=== PATIENT | female | born 1975 | race Caucasian/White ===

== ENCOUNTER 2023-08-19 13:05 | Emergency (ER) | payer BC ==
[2023-08-19 13:44] LABS: #Basophils 0.1 thou/uL (0.0-0.2); #Eosinphils 0.2 thou/uL (0.0-0.7); #Lymphocytes 1.6 thou/uL (1.20-3.40); #Monocytes 0.6 thou/uL (0.11-0.59); #Neutrophils 5.8 thou/uL (1.40-6.50); %Basophils 1.1 % (0.0-1.0); %Eosinophils 2.1 % (0.0-10.0); %Lymphocytes 19.7 % (21.0-51.0); %Monocytes 6.8 % (0.0-10.0); %Neutrophils 70.3 % (42.0-75.0); Hematocrit 37.5 % (36.0-47.0); Hemoglobin 12.2 g/dL (12.0-16.0); Mean Corpuscular HGB CONC 32.6 g/dL (32.0-36.0); Mean Corpuscular Hemoglobin 30.6 pg (27.0-31.0); Mean Corpuscular Volume 93.8 fl (78.0-98.0); Mean Platelet Volume 7.7 fL (7.4-10.4); Platelet Count 224 10x3/uL (130-400); RBC Distribution Width 11.6 % (11.5-14.5); White Blood Cell (WBC) Count 8.3 10x3/uL (4.8-10.8)
[2023-08-19] MEDS ORDERED: Metoclopramide HCl 10 MG (2 mL) VIAL ONE (13:50)
[2023-08-19] MEDS ORDERED: diphenhydrAMINE 50 MG/ML VIAL ONE (13:50)
[2023-08-19 13:54] LABS: Prothrombin Time 12.9 sec (12.0-14.7)
[2023-08-19 13:59] LABS: ALT (SGPT) 20 U/L (8-55); AST (SGOT) 18 U/L (5-34); Albumin 3.7 g/dL (3.5-5.0); Alkaline Phosphatase 68 U/L (40-110); Anion Gap 11 mmol/L (10-20); BUN (Urea Nitrogen) 9 mg/dL (7.0-18.7); Bilirubin, Total 0.3 mg/dL (0.2-1.2); Calc. Creatinine Clearance 0 mL/min (70-130); Calcium 8.8 mg/dL (7.8-10.44); Carbon Dioxide 22 mmol/L (22-29); Chloride 109 mmol/L (98-107); Estimated GFR 109; Globulin 2.8 g/dL (2.4-3.5); Glucose 113 mg/dL (70-105); Potassium 3.7 mmol/L (3.5-5.1); Protein, Total 6.5 g/dL (6.0-8.3); Sodium 138 mmol/L (136-145)
[2023-08-19 14:04] LABS: Pregnancy Test - Urine (BHCG) Negative (Negative); Pregu Control Background? CLEAR/WHITE (CLR/WHITE); Pregu Control Bar Appear? YES (CONTROL BAR); Specific Gravity 1.014 (1.002-1.036)
[2023-08-19] MEDS ORDERED: Morphine 10 MG/ML VIAL ONE (14:54)
[2023-08-19] MEDS ORDERED: Ondansetron PF 4 MG/2 ML Vial ONE (14:54)
[2023-08-19] MEDS ORDERED: Ketorolac Tromethamine 30 MG (1 mL) VIAL ONE (15:46)
[2023-08-19] MEDS ORDERED: Dexamethasone 10 MG/ML VIAL ONE (15:46)
== END 2023-08-19 15:53 | disposition home or self-care (01) ==
LOC: BURERS 13:05
DX: G43.909 Migraine, unspecified, not intractable, without status migrainosus (principal); L72.3 Sebaceous cyst
CPT/HCPCS: 36415; 70450; 80053; 81025; 85025; 85610; 96374; 96375; J1100; J1200; J1885; J2270; J2405; J2765